=== PATIENT | female | born 1960 | race Caucasian/White ===

== ENCOUNTER → 2016-07-19 | Outpatient (CLI) | payer MEDICAID | LOC: LAB 13:15 | DX: R35.0 Frequency of micturition (principal); N30.00 Acute cystitis without hematuria ==

== ENCOUNTER → 2016-08-03 | Outpatient (CLI) | payer MEDICAID | LOC: LAB 05:46 | DX: E11.59 Type 2 diabetes mellitus with other circulatory complications (principal) ==

== ENCOUNTER → 2017-02-28 | Outpatient (CLI) | payer MEDICAID | LOC: LAB 05:55 | DX: R10.2 Pelvic and perineal pain (principal) ==

== ENCOUNTER 2017-06-19 11:14 | Inpatient (IN) | payer MEDICAID ==
[~2017-06-19] VITALS: Ht 157.5 cm; Wt 48.3 kg
[~2017-06-19 11:14] MED LIST: ACETAMINOPHEN325 M3 PO; ASPIRIN E.C. 8181 MG PO; ATIVAN1 M1 PO; BENADRYL; CITALOPRAM40 MG PO; CLOPIDOGREL PO; COLACE100 M1 PO; DILTIAZEM HCL120 M1 PO; DULCOLAX S10 MG/SUPP RC; GLIPIZIDE ER2.5 MG PO; GLUCOPHAGE500 MG/TAB PO; HYDROCORTISONE30 G1 TP; IMODIUM 2MG CAPS2 MG PO; JANUVIA 100MG100 MG; LASIX20 M1 PO; LIPITOR 10M10 MG/TAB PO; MAGNESIUM OXID400 MG PO; NATURAL IRON65 MG PO; RISPERDAL 1M1 MG/TAB PO; ULTRAM50 M1 PO; WELLBUTRIN SR100 M4 PO; ZOFRAN4 M2 PO
[2017-06-19 11:55] VITALS: BP 86/56
[2017-06-19 12:03] LABS: ALBUMIN 2.9 g/dL (3.5-5.0); BUN/CREATININE RATIO 15.1 (6.0-26.0); CALCIUM 7.9 mg/dL (8.4-10.2); POTASSIUM 5.2 mmol/L (3.6-5.0); TOTAL BILIRUBIN 0.2 mg/dL (0.2-1.3); TOTAL PROTEIN 5.6 g/dL (6.3-8.2)
[2017-06-19 12:41] LABS: EOS # 0.1 (0.04-0.40); EOS % 2.2 % (1.0-5.0); HEMATOCRIT 30.2 % (37.0-47.0); HEMOGLOBIN 9.2 g/dL (12.5-16.0); LYMPH# 1.4 (1.50-4.00); MEAN CELL VOLUME 91 fl (78-100); MEAN CORPUSCULAR HEMOGLOBIN 28 pg (27-31); MEAN CORPUSCULAR HGB CONC 31 g/dL (33-37); MEAN PLATELET VOLUME 10.9 fl (7.4-10.4); MONO # 0.4 (0.20-0.80); NEU # 3.5 (1.40-6.50); PLATELET COUNT 255 K/mm3 (130-400); RED BLOOD COUNT 3.31 M/mm3 (4.10-5.30); RED CELL DISTRIBUTION WIDTH 14.2 % (11.5-14.5); WHITE BLOOD COUNT 5.5 K/mm3 (4.8-10.8)
[2017-06-19 13:17] VITALS: BP 120/86
[2017-06-19] MEDS ORDERED: EUCERIN1 CRE TOP (13:45)
[2017-06-19] MEDS ORDERED: LISINOPRIL10 MG PO (13:49)
[2017-06-19] MEDS ORDERED: GOOD NEIGH1200 MG/15 PO (13:51)
[2017-06-19] MEDS ORDERED: NYAMYC100000 U/G TOP (13:52)
[2017-06-19] MEDS ORDERED: MIRALAX17 GM PO (13:52)
[2017-06-19 15:07] VITALS: BP 106/63
[2017-06-19 18:21] VITALS: BP 94/58
[2017-06-19 22:47] VITALS: BP 125/82
[2017-06-20 02:47] VITALS: BP 87/52
[2017-06-20 06:22] VITALS: BP 89/53
[2017-06-20 06:23] VITALS: BP 89/53
[2017-06-20 08:11] LABS: EOS # 0.1 (0.04-0.40); EOS % 2.6 % (1.0-5.0); HEMATOCRIT 29.1 % (37.0-47.0); HEMOGLOBIN 9.2 g/dL (12.5-16.0); LYMPH# 1.6 (1.50-4.00); MEAN CELL VOLUME 91 fl (78-100); MEAN CORPUSCULAR HEMOGLOBIN 29 pg (27-31); MEAN CORPUSCULAR HGB CONC 32 g/dL (33-37); MEAN PLATELET VOLUME 10.4 fl (7.4-10.4); MONO # 0.3 (0.20-0.80); PLATELET COUNT 238 K/mm3 (130-400); RED BLOOD COUNT 3.21 M/mm3 (4.10-5.30); RED CELL DISTRIBUTION WIDTH 13.9 % (11.5-14.5); WHITE BLOOD COUNT 5.1 K/mm3 (4.8-10.8)
[2017-06-20 08:20] LABS: TOTAL PROTEIN 5.2 g/dL (6.3-8.2)
[2017-06-20 08:46] LABS: ALBUMIN 2.6 g/dL (3.5-5.0); CALCIUM 7.8 mg/dL (8.4-10.2); TOTAL BILIRUBIN 0.2 mg/dL (0.2-1.3)
[2017-06-20 09:13] LABS: POTASSIUM 4.7 mmol/L (3.6-5.0)
[2017-06-20 09:50] VITALS: BP 119/80
[2017-06-20 10:26] VITALS: BP 104/72
[2017-06-20 11:27] VITALS: BP 104/72
[2017-06-20] MEDS ORDERED: JANUVIA50 MG PO (11:34)
== END 2017-06-20 13:23 | DRG 312 ==
LOC: MED/SURG 11:14
PROVIDERS: ADMIT Nurse Practitioner Primary Care
DX: I95.1 Orthostatic hypotension (principal); I69.954 Hemiplegia and hemiparesis following unspecified cerebrovascular disease affecting left non-dominant side; N17.9 Acute kidney failure, unspecified; E86.1 Hypovolemia; E87.5 Hyperkalemia; E11.22 Type 2 diabetes mellitus with diabetic chronic kidney disease; N18.9 Chronic kidney disease, unspecified; Z79.84 Long term (current) use of oral hypoglycemic drugs
CPT/HCPCS: J7030

== ENCOUNTER → 2017-06-27 | Outpatient (CLI) | payer MEDICAID ==
[2017-06-20 11:27] VITALS: BP 104/72
[~2017-06-27] MED LIST changes: +EUCERIN1 CRE TOP; +GOOD NEIGH1200 MG/15 PO; +JANUVIA50 MG PO; +LISINOPRIL10 MG PO; +MIRALAX17 GM PO; +NYAMYC100000 U/G TOP
[2017-06-27 07:33] LABS: HEMATOCRIT 28.2 % (37.0-47.0); HEMOGLOBIN 8.6 g/dL (12.5-16.0); MEAN PLATELET VOLUME 10.3 fl (7.4-10.4); RED BLOOD COUNT 3.13 M/mm3 (4.10-5.30); RED CELL DISTRIBUTION WIDTH 14.2 % (11.5-14.5); WHITE BLOOD COUNT 6.7 K/mm3 (4.8-10.8)
[2017-06-27 07:42] LABS: POTASSIUM 4.5 mmol/L (3.6-5.0)
== END ==
LOC: LAB 06:45
PROVIDERS: Emergency Medicine
DX: E11.65 Type 2 diabetes mellitus with hyperglycemia (principal)

== ENCOUNTER → 2017-06-29 | Outpatient (CLI) | payer MEDICAID ==
[2017-06-20 11:27] VITALS: BP 104/72
[2017-06-29 18:07] LABS: URINE APPEARANCE CLOUDY; URINE BILIRUBIN NEGATIVE (NEGATIVE); URINE BLOOD 50 ery/uL (NEGATIVE); URINE COLOR YELLOW; URINE GLUCOSE NEGATIVE (NEGATIVE); URINE KETONE NEGATIVE (NEGATIVE); URINE LEUKOCYTE ESTERASE 2+ (NEGATIVE); URINE NITRATE NEGATIVE (NEGATIVE); URINE PROTEIN(semi-quant) 1+ mg/dL (NEGATIVE); URINE UROBILINOGEN NORMAL (NORMAL); URINE WBC >50 /hpf (0-3)
== END ==
LOC: LAB 17:34
PROVIDERS: Emergency Medicine
DX: R10.2 Pelvic and perineal pain (principal); R39.15 Urgency of urination; R35.0 Frequency of micturition

== ENCOUNTER → 2017-08-18 | Outpatient (CLI) | payer MEDICAID ==
[2017-08-18 16:54] LABS: ALBUMIN 2.2 g/dL (3.5-5.0); BUN/CREATININE RATIO 11.8 (6.0-26.0); CALCIUM 7.4 mg/dL (8.4-10.2); POTASSIUM 3.6 mmol/L (3.6-5.0); TOTAL BILIRUBIN 0.1 mg/dL (0.2-1.3)
== END ==
LOC: LAB 16:11
PROVIDERS: Emergency Medicine
DX: L29.9 Pruritus, unspecified (principal)

== ENCOUNTER 2018-01-13 21:05 | Emergency (ER) | payer MEDICARE, MEDICAID ==
[~2018-01-13] VITALS: Ht 157.5 cm; Wt 59.1 kg
[2018-01-13 21:57] LABS: BASO # 0.1 (0.02-0.10); EOS # 0.2 (0.04-0.40); EOS % 3.5 % (1.0-5.0); HEMATOCRIT 28.8 % (37.0-47.0); HEMOGLOBIN 9.2 g/dL (12.5-16.0); LYMPH# 1.8 (1.50-4.00); MEAN CELL VOLUME 87 fl (78-100); MEAN CORPUSCULAR HEMOGLOBIN 28 pg (27-31); MEAN CORPUSCULAR HGB CONC 32 g/dL (33-37); MEAN PLATELET VOLUME 9.9 fl (7.4-10.4); MONO # 0.5 (0.20-0.80); NEU # 4.4 (1.40-6.50); PLATELET COUNT 330 K/mm3 (130-400); RED BLOOD COUNT 3.31 M/mm3 (4.10-5.30); RED CELL DISTRIBUTION WIDTH 12.2 % (11.5-14.5)
[2018-01-13 22:06] LABS: CALCIUM 8.7 mg/dL (8.4-10.2); POTASSIUM 4.4 mmol/L (3.6-5.0)
[2018-01-13 23:15] LABS: URINE APPEARANCE CLOUDY; URINE COLOR YELLOW; URINE PROTEIN(semi-quant) TRACE mg/dL (NEGATIVE)
[2018-01-13 23:16] LABS: URINE BILIRUBIN NEGATIVE (NEGATIVE); URINE BLOOD TRACE (NEGATIVE); URINE KETONE NEGATIVE (NEGATIVE); URINE LEUKOCYTE ESTERASE 2+ (NEGATIVE); URINE NITRATE NEGATIVE (NEGATIVE); URINE UROBILINOGEN NORMAL (NORMAL); URINE WBC >50 /hpf (0-3)
[2018-01-13 23:17] LABS: URINE MUCUS PRESENT (NOT PRESENT)
[2018-01-14] MEDS ORDERED: CHILDREN'S12.5 MG/2 PO (01:31)
[2018-01-14] MEDS ORDERED: ENEMA BAG1 EAC1 RC (01:33)
[2018-01-14] MEDS ORDERED: NATURAL TEARS OU (01:39)
[2018-01-14] MEDS ORDERED: MACROBID 100 M100 MG PO (03:13)
[2018-01-14 03:50] VITALS: BP 164/94
== END 2018-01-14 03:50 | disposition home or self-care (01) ==
LOC: ED 21:05
PROVIDERS: Family Medicine
DX: E11.65 Type 2 diabetes mellitus with hyperglycemia (principal); N30.90 Cystitis, unspecified without hematuria; L89.623 Pressure ulcer of left heel, stage 3; I69.954 Hemiplegia and hemiparesis following unspecified cerebrovascular disease affecting left non-dominant side; I10 Essential (primary) hypertension; Z79.84 Long term (current) use of oral hypoglycemic drugs; Z79.899 Other long term (current) drug therapy; Z79.82 Long term (current) use of aspirin; Z79.02 Long term (current) use of antithrombotics/antiplatelets
CPT/HCPCS: J0696; J1815; J7030

== ENCOUNTER → 2018-01-29 | Outpatient (CLI) | payer MEDICARE, MEDICAID ==
[2018-01-14 03:50] VITALS: BP 164/94
[~2018-01-29] MED LIST changes: +CHILDREN'S12.5 MG/2 PO; +ENEMA BAG1 EAC1 RC; +MACROBID 100 M100 MG PO; +NATURAL TEARS OU
[2018-01-29 08:45] LABS: URINE APPEARANCE CLOUDY; URINE BILIRUBIN NEGATIVE (NEGATIVE); URINE BLOOD TRACE (NEGATIVE); URINE COLOR YELLOW; URINE KETONE NEGATIVE (NEGATIVE); URINE LEUKOCYTE ESTERASE 2+ (NEGATIVE); URINE NITRATE NEGATIVE (NEGATIVE); URINE PROTEIN(semi-quant) NEGATIVE (NEGATIVE); URINE UROBILINOGEN NORMAL (NORMAL); URINE WBC >50 /hpf (0-3)
== END ==
LOC: LAB 07:30
PROVIDERS: Family Medicine
DX: N30.90 Cystitis, unspecified without hematuria (principal)

== ENCOUNTER → 2018-02-16 | Outpatient (CLI) | payer MEDICARE, MEDICAID ==
[2018-02-16 13:51] LABS: CALCIUM 8.7 mg/dL (8.4-10.2)
== END ==
LOC: LAB 13:15
PROVIDERS: Emergency Medicine
DX: E11.9 Type 2 diabetes mellitus without complications (principal)

== ENCOUNTER → 2018-08-02 | Outpatient (CLI) | payer MEDICARE, MEDICAID ==
[2018-08-02 08:12] LABS: URINE APPEARANCE CLOUDY; URINE BILIRUBIN NEGATIVE (NEGATIVE); URINE COLOR YELLOW; URINE GLUCOSE NEGATIVE (NEGATIVE); URINE KETONE NEGATIVE (NEGATIVE); URINE NITRATE NEGATIVE (NEGATIVE); URINE PROTEIN(semi-quant) 2+ mg/dL (NEGATIVE); URINE UROBILINOGEN NORMAL (NORMAL)
[2018-08-02 08:13] LABS: URINE BLOOD 50 ery/uL (NEGATIVE); URINE LEUKOCYTE ESTERASE 2+ (NEGATIVE); URINE MUCUS PRESENT (NOT PRESENT); URINE WBC >50 /hpf (0-3)
== END ==
LOC: LAB 07:25
PROVIDERS: Family Medicine
DX: R10.2 Pelvic and perineal pain (principal)

== ENCOUNTER → 2018-08-11 | Outpatient (CLI) | payer MEDICARE, MEDICAID ==
[2018-08-11 09:25] LABS: URINE APPEARANCE CLEAR; URINE COLOR YELLOW
[2018-08-11 09:26] LABS: URINE BILIRUBIN NEGATIVE (NEGATIVE); URINE BLOOD NEGATIVE (NEGATIVE); URINE GLUCOSE NEGATIVE (NEGATIVE); URINE KETONE NEGATIVE (NEGATIVE); URINE LEUKOCYTE ESTERASE NEGATIVE (NEGATIVE); URINE NITRATE NEGATIVE (NEGATIVE); URINE PROTEIN(semi-quant) 1+ mg/dL (NEGATIVE); URINE UROBILINOGEN NORMAL (NORMAL); URINE WBC 0-1 /hpf (0-3)
== END ==
LOC: LAB 08:19
PROVIDERS: Family Medicine
DX: R10.2 Pelvic and perineal pain (principal)

== ENCOUNTER → 2018-11-21 | Outpatient (CLI) | payer MEDICARE | LOC: RAD 13:54 | DX: I63.89 Other cerebral infarction (principal); H53.9 Unspecified visual disturbance ==

== ENCOUNTER → 2018-12-20 | Outpatient (CLI) | payer MEDICARE | LOC: RAD 14:15 | DX: I63.9 Cerebral infarction, unspecified (principal); R10.9 Unspecified abdominal pain; R11.10 Vomiting, unspecified; Z86.73 Personal history of transient ischemic attack (TIA), and cerebral infarction without residual deficits ==

== ENCOUNTER → 2019-01-22 | Outpatient (CLI) | payer MEDICARE ==
[2019-01-22 16:19] LABS: URINE APPEARANCE CLOUDY; URINE COLOR YELLOW
[2019-01-22 16:20] LABS: URINE BILIRUBIN NEGATIVE (NEGATIVE); URINE BLOOD TRACE (NEGATIVE); URINE GLUCOSE NEGATIVE (NEGATIVE); URINE KETONE NEGATIVE (NEGATIVE); URINE MUCUS PRESENT (NOT PRESENT); URINE NITRATE NEGATIVE (NEGATIVE); URINE PROTEIN(semi-quant) 2+ mg/dL (NEGATIVE); URINE UROBILINOGEN NORMAL (NORMAL); URINE WBC >50 /hpf (0-3)
[2019-01-22 16:25] LABS: URINE LEUKOCYTE ESTERASE 2+ (NEGATIVE)
== END ==
LOC: LAB 13:10
PROVIDERS: Family Medicine
DX: R10.2 Pelvic and perineal pain (principal); R82.90 Unspecified abnormal findings in urine

== ENCOUNTER → 2019-02-02 | Outpatient (CLI) | payer MEDICARE ==
[2019-02-02 12:37] LABS: HEMATOCRIT 38.7 % (37.0-47.0); HEMOGLOBIN 12.2 g/dL (12.5-16.0); MEAN PLATELET VOLUME 9.4 fl (7.4-10.4); RED BLOOD COUNT 4.21 M/mm3 (4.10-5.30); RED CELL DISTRIBUTION WIDTH 13.1 % (11.5-14.5); WHITE BLOOD COUNT 8.9 K/mm3 (4.8-10.8)
[2019-02-02 12:59] LABS: URINE APPEARANCE HAZY; URINE COLOR YELLOW
[2019-02-02 13:00] LABS: URINE BILIRUBIN NEGATIVE (NEGATIVE); URINE BLOOD NEGATIVE (NEGATIVE); URINE GLUCOSE NEGATIVE (NEGATIVE); URINE KETONE NEGATIVE (NEGATIVE); URINE LEUKOCYTE ESTERASE NEGATIVE (NEGATIVE); URINE NITRATE NEGATIVE (NEGATIVE); URINE PROTEIN(semi-quant) 1+ mg/dL (NEGATIVE); URINE UROBILINOGEN NORMAL (NORMAL)
[2019-02-02 13:01] LABS: URINE MUCUS PRESENT (NOT PRESENT)
== END ==
LOC: LAB 12:25
PROVIDERS: Family Medicine
DX: E11.40 Type 2 diabetes mellitus with diabetic neuropathy, unspecified (principal)

== ENCOUNTER → 2019-03-05 | Outpatient (CLI) | payer MEDICARE ==
[2019-03-05 16:02] LABS: URINE APPEARANCE CLOUDY; URINE COLOR YELLOW
[2019-03-05 16:03] LABS: URINE BILIRUBIN NEGATIVE (NEGATIVE); URINE BLOOD 50 ery/uL (NEGATIVE); URINE GLUCOSE 50 mg/dL mg/dL (NEGATIVE); URINE KETONE NEGATIVE (NEGATIVE); URINE LEUKOCYTE ESTERASE 2+ (NEGATIVE); URINE MUCUS PRESENT (NOT PRESENT); URINE NITRATE POSITIVE (NEGATIVE); URINE PROTEIN(semi-quant) 1+ mg/dL (NEGATIVE); URINE UROBILINOGEN NORMAL (NORMAL); URINE WBC >50 /hpf (0-3)
== END ==
LOC: LAB 15:36
PROVIDERS: Family Medicine
DX: R30.0 Dysuria (principal)

== ENCOUNTER 2019-05-25 10:03 | Emergency (ER) | payer MEDICARE ==
[2019-05-25 10:38] LABS: BASO # 0.1 (0.02-0.10); EOS # 0.1 (0.04-0.40); EOS % 2.1 % (1.0-5.0); HEMATOCRIT 39.2 % (37.0-47.0); HEMOGLOBIN 12.6 g/dL (12.5-16.0); LYMPH# 1.4 (1.50-4.00); MEAN CELL VOLUME 93 fl (78-100); MEAN CORPUSCULAR HEMOGLOBIN 30 pg (27-31); MEAN CORPUSCULAR HGB CONC 32 g/dL (33-37); MEAN PLATELET VOLUME 9.3 fl (7.4-10.4); MONO # 0.3 (0.20-0.80); NEU # 3.5 (1.40-6.50); PLATELET COUNT 403 K/mm3 (130-400); RED BLOOD COUNT 4.22 M/mm3 (4.10-5.30); RED CELL DISTRIBUTION WIDTH 12.8 % (11.5-14.5); WHITE BLOOD COUNT 5.3 K/mm3 (4.8-10.8)
[2019-05-25 10:46] LABS: POTASSIUM 3.1 mmol/L (3.5-5.1)
[2019-05-25 10:47] LABS: CALCIUM 8.4 mg/dL (8.3-10.5)
[2019-05-25 10:48] LABS: TOTAL PROTEIN 6.4 g/dL (6.4-8.3)
[2019-05-25 10:50] LABS: TOTAL BILIRUBIN 0.4 mg/dL (0.2-1.2)
[2019-05-25 11:52] LABS: PH-URINE 5.5 (5.0 - 8.0); URINE APPEARANCE CLEAR; URINE COLOR YELLOW
[2019-05-25 11:53] LABS: URINE BILIRUBIN NEGATIVE (NEGATIVE); URINE BLOOD NEGATIVE (NEGATIVE); URINE GLUCOSE NEGATIVE (NEGATIVE); URINE KETONE NEGATIVE (NEGATIVE); URINE LEUKOCYTE ESTERASE NEGATIVE (NEGATIVE); URINE NITRATE NEGATIVE (NEGATIVE); URINE PROTEIN(semi-quant) TRACE mg/dL (NEGATIVE); URINE UROBILINOGEN NORMAL (NORMAL); URINE WBC 0-1 /hpf (0-3)
[2019-05-25] MEDS ORDERED: ACETAMINOPHEN500 M5 PO (11:54)
[2019-05-25] MEDS ORDERED: ASPERCREME 1035.4 GM TP (11:54)
[2019-05-25] MEDS ORDERED: BENADRYL 5050 MG/CAP PO (11:56)
[2019-05-25] MEDS ORDERED: CRANBERRY200 MG PO (11:56)
[2019-05-25] MEDS ORDERED: SM ENEMA READY RC (11:57)
[2019-05-25] MEDS ORDERED: DEX4 GLUCOSE15 GM PO (11:58)
[2019-05-25] MEDS ORDERED: NEURONTIN300 M1 PO (11:58)
[2019-05-25] MEDS ORDERED: LEVEMIR100 U/M1 SQ (11:59)
[2019-05-25] MEDS ORDERED: LIDODERM1 EACH TP (12:00)
[2019-05-25] MEDS ORDERED: NORVASC 5MG5 MG/TAB PO (12:00)
[2019-05-25] MEDS ORDERED: NOVOLOG 100U100 U/ML SQ (12:05)
[2019-05-25] MEDS ORDERED: PROBIOTIC1 EAC1 PO (12:05)
[2019-05-25] MEDS ORDERED: K-LOR20 MEQ/PKT PO (13:23)
[2019-05-25] MEDS ORDERED: FIRVANQ25 MG/1 ML PO (13:23)
[2019-05-25 14:40] VITALS: BP 128/76
== END 2019-05-25 14:40 | disposition home or self-care (01) ==
LOC: ED 10:03
PROVIDERS: Family Medicine
DX: K52.9 Noninfective gastroenteritis and colitis, unspecified (principal); E11.649 Type 2 diabetes mellitus with hypoglycemia without coma; E87.6 Hypokalemia; I10 Essential (primary) hypertension; F03.90 Unspecified dementia, unspecified severity, without behavioral disturbance, psychotic disturbance, mood disturbance, and anxiety; Z86.73 Personal history of transient ischemic attack (TIA), and cerebral infarction without residual deficits; Z87.448 Personal history of other diseases of urinary system; Z79.82 Long term (current) use of aspirin; Z79.02 Long term (current) use of antithrombotics/antiplatelets; Z79.4 Long term (current) use of insulin
CPT/HCPCS: Q9967

== ENCOUNTER 2019-06-13 06:59 | Emergency (ER) | payer MEDICARE ==
[~2019-06-13 06:59] MED LIST changes: +ACETAMINOPHEN500 M5 PO; +ASPERCREME 1035.4 GM TP; +BENADRYL 5050 MG/CAP PO; +CRANBERRY200 MG PO; +DEX4 GLUCOSE15 GM PO; +FIRVANQ25 MG/1 ML PO; +K-LOR20 MEQ/PKT PO; +LEVEMIR100 U/M1 SQ; +LIDODERM1 EACH TP; +NEURONTIN300 M1 PO; +NORVASC 5MG5 MG/TAB PO; +NOVOLOG 100U100 U/ML SQ; +PROBIOTIC1 EAC1 PO; +SM ENEMA READY RC
[2019-06-13] MEDS ORDERED: LEVEMIR FLEX100 U/ML SQ (07:35)
[2019-06-13 07:43] LABS: HEMATOCRIT 41.1 % (37.0-47.0); HEMOGLOBIN 13.1 g/dL (12.5-16.0); MEAN CELL VOLUME 94 fl (78-100); MEAN CORPUSCULAR HEMOGLOBIN 30 pg (27-31); MEAN CORPUSCULAR HGB CONC 32 g/dL (33-37); MEAN PLATELET VOLUME 9.5 fl (7.4-10.4); PLATELET COUNT 379 K/mm3 (130-400); RED BLOOD COUNT 4.39 M/mm3 (4.10-5.30); RED CELL DISTRIBUTION WIDTH 13.3 % (11.5-14.5); WHITE BLOOD COUNT 9.8 K/mm3 (4.8-10.8)
[2019-06-13 07:55] LABS: LYMPHOCYTE 8 % (20-51); MONOCYTE 2 % (3-10); NEUTROPHILS 88 % (42-75)
[2019-06-13 08:00] LABS: CALCIUM 8.3 mg/dL (8.3-10.5)
[2019-06-13 08:02] LABS: TOTAL PROTEIN 6.7 g/dL (6.4-8.3)
[2019-06-13 08:03] LABS: TOTAL BILIRUBIN 0.3 mg/dL (0.2-1.2)
[2019-06-13 10:16] LABS: URINE APPEARANCE CLOUDY; URINE BILIRUBIN NEGATIVE (NEGATIVE); URINE BLOOD 250 ery/uL (NEGATIVE); URINE COLOR YELLOW; URINE GLUCOSE NEGATIVE (NEGATIVE); URINE KETONE NEGATIVE (NEGATIVE); URINE LEUKOCYTE ESTERASE 2+ (NEGATIVE); URINE NITRATE NEGATIVE (NEGATIVE); URINE PROTEIN(semi-quant) 1+ mg/dL (NEGATIVE); URINE UROBILINOGEN NORMAL (NORMAL)
[2019-06-13 10:17] LABS: URINE MUCUS PRESENT (NOT PRESENT); URINE WBC >50 /hpf (0-3)
[2019-06-13] MEDS ORDERED: ROCEPHIN 2 G2 G/VIAL IM (10:49)
[2019-06-13 11:14] VITALS: BP 126/78
== END 2019-06-13 11:08 | disposition home or self-care (01) ==
LOC: ED 06:59
PROVIDERS: Nurse Practitioner Primary Care
DX: E11.649 Type 2 diabetes mellitus with hypoglycemia without coma (principal); N30.00 Acute cystitis without hematuria; I10 Essential (primary) hypertension; K21.9 Gastro-esophageal reflux disease without esophagitis; F03.90 Unspecified dementia, unspecified severity, without behavioral disturbance, psychotic disturbance, mood disturbance, and anxiety; Z79.02 Long term (current) use of antithrombotics/antiplatelets; Z79.4 Long term (current) use of insulin; Z79.82 Long term (current) use of aspirin; Z79.891 Long term (current) use of opiate analgesic; Z86.73 Personal history of transient ischemic attack (TIA), and cerebral infarction without residual deficits; Z87.440 Personal history of urinary (tract) infections
CPT/HCPCS: J0696

== ENCOUNTER 2019-06-19 12:31 | Observation (INO) | payer MEDICARE ==
[~2019-06-19] VITALS: Ht 157.5 cm; Wt 56.1 kg
[~2019-06-19 12:31] MED LIST changes: +LEVEMIR FLEX100 U/ML SQ; +ROCEPHIN 2 G2 G/VIAL IM
[2019-06-19 13:28] LABS: EOS # 0.1 (0.04-0.40); HEMOGLOBIN 10.9 g/dL (12.5-16.0); LYMPH# 0.8 (1.50-4.00); MEAN CELL VOLUME 95 fl (78-100); MEAN CORPUSCULAR HEMOGLOBIN 30 pg (27-31); MEAN CORPUSCULAR HGB CONC 31 g/dL (33-37); MEAN PLATELET VOLUME 9.3 fl (7.4-10.4); MONO # 0.5 (0.20-0.80); NEU # 5.5 (1.40-6.50); PLATELET COUNT 306 K/mm3 (130-400); RED BLOOD COUNT 3.67 M/mm3 (4.10-5.30); RED CELL DISTRIBUTION WIDTH 13.8 % (11.5-14.5); WHITE BLOOD COUNT 6.9 K/mm3 (4.8-10.8)
[2019-06-19 13:36] LABS: ALBUMIN 2.4 g/dL (3.5-5.0)
[2019-06-19 13:38] LABS: CALCIUM 7.7 mg/dL (8.3-10.5)
[2019-06-19 13:39] LABS: TOTAL PROTEIN 5.3 g/dL (6.4-8.3)
[2019-06-19 13:41] LABS: TOTAL BILIRUBIN 0.2 mg/dL (0.2-1.2)
[2019-06-19 13:57] LABS: POTASSIUM 2.6 mmol/L (3.5-5.1)
[2019-06-19 14:08] LABS: URINE APPEARANCE HAZY; URINE BILIRUBIN NEGATIVE (NEGATIVE); URINE BLOOD NEGATIVE (NEGATIVE); URINE COLOR YELLOW; URINE GLUCOSE NEGATIVE (NEGATIVE); URINE KETONE NEGATIVE (NEGATIVE); URINE LEUKOCYTE ESTERASE TRACE (NEGATIVE); URINE NITRATE NEGATIVE (NEGATIVE); URINE PROTEIN(semi-quant) TRACE mg/dL (NEGATIVE); URINE UROBILINOGEN NORMAL (NORMAL); URINE WBC 0-1 /hpf (0-3)
--- NOTE | 2019-06-19 14:34 | NUR ---
PT ADMITTED TO ROOM 204 FOR OBSERVATION. [facility] NOTIFIED AND WILL BRING PT HOME MEDS. IV TO RIGHT AC FOR POTASSIUM REPLACEMENT AND TELE MONITORING. BS 83 IN ER JUST BEFORE ARRIVING ON FLOOR. PT DENIES PAIN. ALERT TO SELF AND SITUATION. HEALING BRUISING NOTED TO RIGHT COLLAR BONE, RIGHT UPPER ARM AND RIGHT HIP. DAUGHTER AT BEDSIDE. MAGIC CUP PROVIDED AND ENCOURAGING PT TO EAT. CALL LIGHT IN REACH
[2019-06-19 14:44] VITALS: BP 124/78
[2019-06-19 15:00] VITALS: BP 124/78
[2019-06-19] MEDS ORDERED: NEURONTIN300 MG/CAP (15:35)
[2019-06-19] MEDS ORDERED: LEVEMIR100 U/M1 SQ (15:37)
[2019-06-19] MEDS ORDERED: JANUVIA50 MG PO (15:37)
[2019-06-19 18:36] VITALS: BP 116/73
--- NOTE | 2019-06-19 19:00 | NUR ---
Report received from Darline Fisher RN
--- NOTE | 2019-06-19 19:30 | NUR ---
Resting in bed, bed alarm set and call light with in reach. Answers questions appropriately. C/o's of pain left knee and left arm. Rated 5 out 10. States she has had this chronic pain since she had her stroke. I asked patient if she would like pain medication with evening medications. Stated "yes." Denied nausea. IV fluids NS with 20meq of KCL infusing at 100mls/hr. Continues on tele-monitor.
--- NOTE | 2019-06-19 21:30 | NUR ---
2109 Pt requesting to ativan PO. States she take it every night at home. Pt also requesting something for her "loose stools." Leatha Zavala PA-C notified. 2114 Pt requesting tramodol with ativan. Leatha Zavala PA-C notified. Leatha FLETCHER stated she could have tramodol with ativan.
[2019-06-19 23:30] VITALS: BP 122/81
[2019-06-20 01:31] VITALS: BP 136/76
--- NOTE | 2019-06-20 01:44 | NUR ---
Roled up wash cloth placed in pt's left hand. Pt awake and a/o x 3. Given snack of sugar free jellow and gram crackers.
[2019-06-20 06:05] VITALS: BP 128/78
--- NOTE | 2019-06-20 06:15 | NUR ---
Leatha Zavala notified of IV's infusing. IV fluids DC. No new orders.
--- NOTE | 2019-06-20 07:15 | NUR ---
REPORT RECEIVED FROM TRU MORENO.
[2019-06-20 07:16] LABS: CALCIUM 7.7 mg/dL (8.3-10.5)
[2019-06-20 07:20] LABS: POTASSIUM 4.1 mmol/L (3.5-5.1)
--- NOTE | 2019-06-20 07:20 | NUR ---
Report to Clementina Clifton RN
--- NOTE | 2019-06-20 07:23 | NUR ---
Pt agitated. Encouraged to drink OJ and eat peanut butter crackers for low blood sugar. Education provided. Pt drinks juice but refuses peanut butter. Offers turkey sandwich pt continues to refuse. Will recheck BS and get breakfast tray
[2019-06-20 09:55] VITALS: BP 154/93
--- NOTE | 2019-06-20 10:13 | NUR ---
INT TO RT FOREARM FLUSHED. INFILTRATION NOTED. PATIENT REFUSES ANOTHER IV. KANIKA ALFARON NOTIFIED AND ORDERS TO HOLD IV START AT PRESENT. WILL ADDRESS LATER IF SITE NEEDED.
--- NOTE | 2019-06-20 10:25 | NUR ---
NAPPING. AWAKENS EASILY TO VOICE. NEURO CHECK COMPLETE AT THIS TIME. PATIENT VOICES DISCONTENT, BUT DOES COOPERATE. TROUBLE REMEMBERING CURRENT LOCATION; BELIEVES TO BE IN HOTEL, NOT HOSPITAL.
--- NOTE | 2019-06-20 11:16 | NUR ---
Spoke with Kayleigh, pt's nurse at [facility]. Updated with pt's plan of care at this time. According to nursing notes, but has been refusing food and reinsertion of IV. Possible discharge home later this evening depending on how blood sugars continue to run. Kayleigh verbalized understanding and denied further questions or concerns at this time.
--- NOTE | 2019-06-20 11:29 | NUR ---
DAUGHTER CATE CALLS AND UPDATE GIVEN. PATIENT STILL BELIEVES SHE IS IN A HOTEL.
--- NOTE | 2019-06-20 11:39 | NUR ---
PLAN TO AMBULATE FROM BEDSIDE COMMODE TO CHAIR FOR LUNCH. AFTER VOIDING, PATIENT THEN DECIDES SHE WILL NOT SIT IN CHAIR BECAUSE IT IS PAINFUL ON HER BOTTOM. POSITION TO BED PER COMFORT. RESISTANT TO CARES, BUT WILL EVENTUALLY COOPERATE. BRUSHES TEETH. HAS SNARKY COMMENTS FOR EACH ACTIVITY.
--- NOTE | 2019-06-20 11:54 | NUR ---
DOES NOT WANT TO EAT. DISCUSS PROPER NUTRITION WITH PATIENT. DISCUSS MAINAINING BLOOD SUGAR WITH PATIENT. OFFER SUBSTITUTE TO HAMBURGER THAT WAS SERVED AND PATIENT DENIES. OFFER DIET COKE IF SHE WILL TRY AND EAT, SHE DOES RESPOND TO THIS.
--- NOTE | 2019-06-20 12:27 | NUR ---
ATE A COUPLE BITES OF HAMBURGER. PATIENT DECIDES TO TAKE OFFER OF CHICKEN NOODLE SOUP.
--- NOTE | 2019-06-20 13:56 | NUR ---
PIVOT TRANSFER TO BEDSIDE COMMODE AND BACK TO BED. TEARFUL REGARDING NEED TO EAT TO KEEP BLOOD SUGAR STABILIZED. PATIENT DOES NOT ENJOY MANY FOODS, SO EATING IS QUITE A TASK. USE TO LIKE GRILLED CHEESE, BUT THE WAY THEY MAKE THEM AT [facility] IS NOT APPEALING. STATES "IT'S LIKE GRILLED CHEESE GUM OVER THERE." WILL EAT CHICKEN NOODLE SOUP AND DID FOR LUNCH TODAY. DAUGHTER BROUGHT IN BEEF STROGANOFF WHICH PATIENT HAS TAKEN A FEW BITES. SUGGEST TO PATIENT TO STOP EATING IF TRULY FULL. WILL CHECK FSBS AT 1430. HAS DIET PEPSI TO ENJOY. POSITION TO BED PER COMFORT. TEARFUL AGAIN AND STATES "I'M SORRY I'M SO BITCHY." POSITIVE ENCOURAGEMENT PROVIDED.
[2019-06-20 14:20] VITALS: BP 159/95
--- NOTE | 2019-06-20 14:29 | NUR ---
REPORT PROVIDED TO MICHEAL MORENO.
--- NOTE | 2019-06-20 14:47 | NUR ---
REPORT RECEIVED FROM TIFFANIE GAY. PATIENT ALERT AND AGITATED. PATIENT COOPERATIVE WITH ASSESSMENT BUT STATES SHE IS READY TO GO HOME AND TIRED OF EVERYONE ASKING HER HOW SHE IS DOING. PATIENT IS RESTING IN HER BED WITH HOB 30 DEGREES; LEFT LEG ON PILLOW FOR COMFORT. PATIENT TAKING BITES OF A ROLL THAT IS AT BEDSIDE. PATIENT REPORTS LEFT SIDED DISCOMFORT AND NOT ABLE TO GIVE PAIN MED YET; PATIENT DENIES HEATING PAD OR LIDODERM PATCH. PATIENT ASKING ABOUT HER ANTIBIOTIC SHOT AND PER EMAR; SHE DOES NOT HAVE AN ANTIBIOTIC ORDERED. PATIENT LEFT IN ROOM WITH LIGHTS OFF; WATCHING TV AND ALL ALARMS TURNED ON. CALL LIGHT WITHIN REACH.
[2019-06-20] MEDS ORDERED: K-TAB20 MEQ PO (15:33)
--- NOTE | 2019-06-20 16:57 | NUR ---
patient given discharge instructions/ called report to Kayleigh - nurse at [facility]. Paperwork signed and home meds ready to give back to halfway. Patient wanted to stay here for supper and then get ready to go after she eats.
--- NOTE | 2019-06-20 17:45 | NUR ---
PATIENT DRESSED AND HAS ALL BELONGINGS. HEMODIALYSIS TECHNICIAN FROM [facility] ARRIVED WITH PATIENT'S WHEELCHAIR AND SHE IS READY TO GO. NO FURTHER QUESTIONS OR CONCERNS NOTED. PATIENT LEFT WITHOUT INCIDENT.
== END 2019-06-20 17:45 ==
LOC: ED 12:31 → MED/SURG 14:09
PROVIDERS: ADMIT Physician Assistant
DX: E11.649 Type 2 diabetes mellitus with hypoglycemia without coma (principal); Z86.73 Personal history of transient ischemic attack (TIA), and cerebral infarction without residual deficits; E11.22 Type 2 diabetes mellitus with diabetic chronic kidney disease; I12.9 Hypertensive chronic kidney disease with stage 1 through stage 4 chronic kidney disease, or unspecified chronic kidney disease; N18.9 Chronic kidney disease, unspecified; F41.9 Anxiety disorder, unspecified; M06.9 Rheumatoid arthritis, unspecified; N39.0 Urinary tract infection, site not specified; Z90.710 Acquired absence of both cervix and uterus; Z79.82 Long term (current) use of aspirin; Z79.02 Long term (current) use of antithrombotics/antiplatelets; Z79.4 Long term (current) use of insulin; Z82.49 Family history of ischemic heart disease and other diseases of the circulatory system; Z87.891 Personal history of nicotine dependence; Z88.5 Allergy status to narcotic agent; Z88.8 Allergy status to other drugs, medicaments and biological substances
CPT/HCPCS: G0378; J1650; J3480

== ENCOUNTER → 2019-06-27 | Outpatient (CLI) | payer MEDICARE ==
[2019-06-20 14:20] VITALS: BP 159/95
[~2019-06-27] MED LIST changes: +K-TAB20 MEQ PO; +NEURONTIN300 MG/CAP
[2019-06-27 06:28] LABS: CALCIUM 7.8 mg/dL (8.3-10.5); POTASSIUM 3.5 mmol/L (3.5-5.1)
== END ==
LOC: LAB 05:40
PROVIDERS: Physician Assistant
DX: I69.354 Hemiplegia and hemiparesis following cerebral infarction affecting left non-dominant side (principal)